=== PATIENT | female | born 1970 | race Caucasian/White ===

== ENCOUNTER 2016-07-26 04:13 | Day surgery (SDC) | payer BC ==
[2016-07-20 09:25] LABS: HEMATOCRIT 43.6 % (36.0-48.0); HEMOGLOBIN 14.2 g/dL (12.0-16.0)
[2016-07-20 09:38] LABS: BUN (BLOOD UREA NITROGEN) 13 MG/DL (6-23); CALCIUM, SERUM 8.9 MG/DL (8.5-10.4); CHLORIDE, SERUM 105 MMOL/L (96-112); CO2 (CARBON DIOXIDE) 25 MMOL/L (24-34); CREATININE 0.72 MG/DL (0.55-1.02); GFR AFRICAN AMERICAN 116 ML/MIN (>=60); GFR NON AFRICAN AMERICAN 100 ML/MIN (>=60); GLUCOSE, SERUM 113 MG/DL (60-99); POTASSIUM, SERUM 4.3 MMOL/L (3.5-5.3); SODIUM, SERUM 139 MMOL/L (135-148)
--- NOTE | ~2016-07-26 | OP ---
Record Of Operation [facility] [address] [place]. [address] NAME: PRAVEEN MCBRIDE : 68 [place]US [place] [facility] [place] [id number] AGE: 46 ADM/REG DATE : 07/26/16 MR#: [id number] REPORT SERV DATE: 07/26/16 DICTATED BY: DEYA GLASS DATE: 07/26/16 REPORT STATUS : Draft TRANSCRIBED BY: MODL DATE: 07/26/16 DATE OF PROCEDURE: 07/26/2016 PREOPERATIVE DIAGNOSIS: Right medial meniscus tear. POSTOPERATIVE DIAGNOSES: 1. Right medial meniscus tear. 2. Chondromalacia with unstable chondral flaps. PROCEDURE: Right partial medial meniscectomy and chondroplasty, medial femoral condyle. SURGEON: Deya Glass M.D. COMPLICATIONS: None. ANESTHESIA: General endotracheal. INDICATIONS: This 46-year-old female suffered a traumatic medial meniscus tear with resultant mechanical symptoms in the medial knee. She wished to proceed with operative intervention. After discussion of operative risks, benefits, and alternatives of the procedure, the patient was induced in the supine position and the right lower extremity was prepped and draped in a standard surgical fashion. A time-out protocol was enforced, Ancef was administered. The anterolateral portal was created for diagnostic arthroscopy which revealed mild chondromalacia of the patellofemoral surfaces with synovitis in the suprapatellar pouch. ACL/PCL was normal. Lateral compartment had grade 2 chondromalacia on the tibial plateau. The lateral meniscus was normal. The medial compartment demonstrated a parrot-beak tear of the body horn junction with the flap displaced behind the condyle. There was an unstable flap tear evident on the medial femoral condyle adjacent to the tear at the level of the posterior root. An accessory medial portal was created, chondroplasty performed of the medial femoral condyle through flexion/extension removing unstable chondral flaps. We debrided the fat pad and the plica was excised through flexion/extension. The straight right and left biters were used to debride the meniscus back to a stable margin and the debris was extirpated with a shaver. We were able to maintain approximately 40% or 50% of the meniscus. The scope was withdrawn, the portals were closed with Monocryl, Steri-Strips were applied. The patient tolerated the procedure well, was taken back in stable condition. POSTOPERATIVE PLAN: Touchdown weightbearing/partial weightbearing for 2 weeks. Early range of motion. [facility] Record Of Operation [address] [address] NAME: PRAVEEN MCBRIDE : 68 [place]US [place] [facility] [place] [id number] AGE: 46 ADM/REG DATE : 07/26/16 MR#: [id number] REPORT SERV DATE: 07/26/16 DICTATED BY: DEYA GLASS DATE: 07/26/16 REPORT STATUS : Draft TRANSCRIBED BY: MODL DATE: 07/26/16 Deya Glass M.D. / [id number] CC: Roldan Alberts M.D.
[~2016-07-26 04:13] MED LIST: GLUCPH PO; MULTIPLE VIT PO
== END 2016-07-26 23:59 | disposition home or self-care (01) ==
LOC: SDC 04:13
PROVIDERS: Orthopaedic Surgery Sports Medicine
PROC: 0SBC4ZZ Excision of Right Knee Joint, Percutaneous Endoscopic Approach (ICD-10-PCS; principal; 2016-07-26 05:45)
DX: S83.241A Other tear of medial meniscus, current injury, right knee, initial encounter (principal); X58.XXXA Exposure to other specified factors, initial encounter; Y93.9 Activity, unspecified; M94.261 Chondromalacia, right knee; E11.9 Type 2 diabetes mellitus without complications; E66.01 Morbid (severe) obesity due to excess calories; Z68.42 Body mass index [BMI] 45.0-49.9, adult; Z83.3 Family history of diabetes mellitus; Z82.49 Family history of ischemic heart disease and other diseases of the circulatory system; Z82.61 Family history of arthritis; Z88.2 Allergy status to sulfonamides; Z79.84 Long term (current) use of oral hypoglycemic drugs; Z79.899 Other long term (current) drug therapy
CPT/HCPCS: 80048; 82962; 84703; 85014; 85018; J0690; J1885; J2250; J2270; J2274; J2405